=== PATIENT | male | born 1965 | race African-American/Black ===

== ENCOUNTER 2016-09-03 17:34 | Emergency (ER) | payer MEDICAID ==
[~2016-09-03] VITALS: Ht 185.4 cm; Wt 90.7 kg
[2016-09-03] MEDS ORDERED: TRAMADOL HCL50 MG ORAL (18:25)
[2016-09-03] MEDS ORDERED: IBUPROFEN600 MG ORAL (18:25)
[2016-09-03 18:36] VITALS: BP 138/82
--- NOTE | 2016-09-03 22:22 | Emergency Room Report ---
History of Present Illness General Chief Complaint: Lower Extremity Injury Source: Patient Present Illness HPI The patient is a 51-year-old male presenting for right knee pain which occurred 3 days prior. Patient states that he was walking down stairs and missed a step. He denies falling. Pain is described as an 8/10 dull ache and does not radiate. Worse with walking. Denies previous injury to the area. He denies any other symptoms Allergies: Coded Allergies: No Known Allergies (Unverified , 09/03/16) Patient History Past Medical History: see triage record Pertinent Family History: none Reviewed Nursing Documentation: PMH: Agreed, PSxH: Agreed Nursing Documentation-PMH Past Medical History: No Stated History Review of Systems All Other Systems: negative except mentioned in HPI Physical Exam Vital Signs Date Time Temp Pulse Resp B/P Pulse Ox O2 Delivery O2 Flow Rate FiO2 09/03/16 17:39 98.4 69 14 138/82 96 Room Air Sp02 EP Interpretation: reviewed, normal General Appearance: no apparent distress, alert, GCS 15, non-toxic Head: normocephalic, atraumatic Eyes: bilateral eye PERRL, bilateral eye normal inspection ENT: hearing grossly normal, normal pharynx, no angioedema, normal voice Neck: full range of motion, supple/symm/no masses Musculoskeletal: normal range of motion, swelling - medial R knee, tender - medial R knee Neurologic: alert, oriented x3, responsive, motor strength/tone normal, sensory intact, speech normal Psychiatric: judgement/insight normal, memory normal, mood/affect normal, no suicidal/homicidal ideation Skin: normal color, no rash, warm/dry, well hydrated Lymphatic: no adenopathy Procedures Splinting Splinting : Consent: Verbal Location: R knee Pre-Made Type: EDWIN wrap Pre-Proc Neuro Vasc Exam: normal Post-Proc Neuro Vasc Exam: normal Patient Tolerated: Well Complications: None Medical Decision Making PA Attestation Dr. Kenny is my supervising physician. Patient management was discussed with my supervising physician Diagnostic Impression: Primary Impression: Knee MCL sprain Qualified Codes: S83.411A - Sprain of medial collateral ligament of right knee , initial encounter ER Course The patient is a 51-year-old male presenting for right knee pain Ddx considered include but not limited to sprain/strain, fracture, contusion, ligament injury, among others Physical exam: no apparent distress. Right knee: There is tenderness to palpation as well as soft tissue swelling of the medial aspect. No joint laxity. Full active range of motion. X-rays unremarkable. Edwin wrap and crutches are applied. He is given pain medications. Rice instructions given ER precautions given Other X-Ray Diagnostic Results Other X-Ray Diagnostic Results : X-Ray ordered: R knee # of Views/Limited Vs Complete: 3 View Indication: Pain EP Interpretation: Yes Interpretation: no dislocation, no soft tissue swelling, no fractures Impression: No acute disease Interpreting ER Provider: Dr. Zoya CUADRA Scribe Text I am acting as scribe for my supervising physician. My supervising physician's interpretation of the R knee xrays are there are no fractures, dislocations or soft tissue swelling. Last Vital Signs Date Time Temp Pulse Resp B/P Pulse Ox O2 Delivery O2 Flow Rate FiO2 09/03/16 18:36 98.4 14 138/82 96 Room Air 09/03/16 17:39 69 Status: improved Disposition: HOME, SELF-CARE Condition: Improved Scripts Tramadol Hcl* (ULTRAM*) 50 Mg Tablet 50 MG ORAL Q6H Y for For Pain, #10 TAB 0 Refills Prov: YAKOV THOMAS P.A. 09/03/16 Ibuprofen* (MOTRIN*) 600 Mg Tablet 600 MG ORAL Q8H Y for For Pain, #30 TAB 0 Refills Prov: YAKOV THOMAS P.A. 09/03/16 Referrals: [facility]ERR[facility] (PCP) Patient Instructions: Knee Pain, Knee Sprain Additional Instructions: I discussed my findings with the patient. All questions and concerns have been answered. Treatment and medication compliance have been addressed. I advised the patient that they need to follow up with PMD in 3-5 days. Return to ED if pain remains or worsens, numbness or tingling occurs, new rash is noticed, fever is noticed, or if needed for any reason. Patient verbalized understanding of discharge instructions. You may need MRI of the knee if pain persists or worsens. YAKOV THOMAS Sep 03, 2016 22:22
--- NOTE | 2016-09-04 09:23 | Diagnostic Imaging Report ---
Indication: Pain 3 views of the right knee were obtained. Findings: No acute fracture, malalignment, or joint effusion are identified. Joint space is relatively well-maintained. Bone mineralization is within normal limits for age. Impression: Negative exam
== END 2016-09-03 18:38 | disposition home or self-care (01) ==
LOC: EMR 18:20
DX: S83.411A Sprain of medial collateral ligament of right knee, initial encounter (principal); W18.43XA Slipping, tripping and stumbling without falling due to stepping from one level to another, initial encounter; Y92.9 Unspecified place or not applicable
CPT/HCPCS: 29530; 99284

== ENCOUNTER 2017-03-14 18:27 | Emergency (ER) | payer MEDICAID ==
[~2017-03-14] VITALS: Ht 172.7 cm; Wt 81.6 kg
[~2017-03-14 18:27] MED LIST: IBUPROFEN600 MG ORAL; TRAMADOL HCL50 MG ORAL
[2017-03-14 19:45] VITALS: BP 139/77
[2017-03-14] MEDS ORDERED: PERCOCET 5-3251 EACH ORAL (21:24)
[2017-03-14] MEDS ORDERED: INDOMETHACIN50 MG PO (21:24)
[2017-03-14 21:33] VITALS: BP 152/79
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
== END 2017-03-14 21:34 | disposition home or self-care (01) ==
LOC: EMR 19:25
DX: M25.552 Pain in left hip (principal); M25.551 Pain in right hip
CPT/HCPCS: 73502; 99284

== ENCOUNTER 2017-08-31 21:10 | Emergency (ER) | payer MEDICAID ==
[~2017-08-31] VITALS: Ht 185.4 cm; Wt 95.3 kg
[~2017-08-31 21:10] MED LIST changes: +INDOMETHACIN50 MG PO; +PERCOCET 5-3251 EACH ORAL
--- NOTE | 2017-08-31 21:42 | Emergency Room Report ---
History of Present Illness General Chief Complaint: Back Pain-No Injury Source: Patient Present Illness HPI Is a 52-year-old male with a history kidney stone the past. He presents with left flank pain that started few hours ago. No radiation. No dysuria or frequency. No hematuria. Pain is 9 out of 10. Worse with movement. No trauma. No fever or chills. Nothing made it better. Nothing made it worse. Allergies: Coded Allergies: No Known Allergies (Unverified , 09/03/16) Patient History Past Medical History: see triage record, old chart reviewed Past Surgical History: none Pertinent Family History: none Social History: Reports: smoking Immunizations: other Reviewed Nursing Documentation: PMH: Agreed; PSxH: Agreed Review of Systems Eye: Denies: eye pain, blurred vision ENT: Denies: ear pain, nose congestion, throat swelling Respiratory: Denies: cough, shortness of breath Cardiovascular: Denies: chest pain, palpitations Gastrointestinal: Denies: abdominal pain, diarrhea, nausea, vomiting Musculoskeletal: Reports: back pain; Denies: joint pain Skin: Denies: rash Neurological: Denies: headache, numbness Endocrine: Denies: increased thirst, increased urine Hematologic/Lymphatic: Denies: easy bruising All Other Systems: negative except mentioned in HPI Physical Exam Vital Signs Date Time Temp Pulse Resp B/P (MAP) Pulse Ox O2 Delivery O2 Flow Rate FiO2 08/31/17 21:15 98.1 62 18 125/78 98 Room Air 98.1 vitals normal Sp02 EP Interpretation: reviewed, normal General Appearance: well appearing, no apparent distress, alert Head: normocephalic, atraumatic Eyes: bilateral eye PERRL, bilateral eye EOMI ENT: hearing grossly normal, normal pharynx Neck: full range of motion, supple, no meningismus Respiratory: chest non-tender, lungs clear, normal breath sounds Cardiovascular #1: regular rate, rhythm, no murmur Gastrointestinal: normal bowel sounds, non tender, no mass, no organomegaly, no bruit, non-distended Musculoskeletal: back normal, gait/station normal, normal range of motion Psychiatric: mood/affect normal Skin: warm/dry Medical Decision Making Diagnostic Impression: Primary Impression: Back pain Qualified Codes: M54.5 - Low back pain Additional Impression: UTI (urinary tract infection) Qualified Codes: N30.00 - Acute cystitis without hematuria ER Course Patient presents with back pain. No evidence of renal colic or ureteral calculus. He does have few amount of bacteria and WBC in his urine. We'll go ahead and treat for UTI. Pain is better now. No evidence obstruction or acute abdomen. No evidence of dissection. CT/MRI/US Diagnostic Results CT/MRI/US Diagnostic Results : Imaging Test Ordered: CT abdomen and pelvis Impression Read by radiologist. No acute disease. Last Vital Signs Date Time Temp Pulse Resp B/P (MAP) Pulse Ox O2 Delivery O2 Flow Rate FiO2 08/31/17 21:15 98.1 62 18 125/78 98 Room Air 98.1 Status: improved Disposition: HOME, SELF-CARE Condition: Stable Scripts Cephalexin* (KEFLEX*) 500 Mg Capsule 500 MG ORAL TID, #21 CAP Prov: SCOUT ERWIN M.D. 08/31/17 Hydrocodone/Acetaminophen 5-325* (HYDROCODONE/ACETAMINOPHEN 5-325*) 1 Each Tablet 1 TAB ORAL Q6H PRN for For Pain, #20 TAB 0 Refills Prov: SCOUT ERWIN M.D. 08/31/17 Patient Instructions: Back Pain, Adult Additional Instructions: Follow-up with your Dr. in 3-5 days. Return if symptom worsen. SCOUT ERWIN M.D. Aug 31, 2017 21:42
[2017-08-31] MEDS ORDERED: Morphine Sulfate 10mg/ml Inj IV ONE (21:45)
[2017-08-31 21:52] LABS: APPEARANCE,URINE CLEAR; BILIRUBIN, URINE NEGATIVE (NEGATIVE); COLOR,URINE AMBER; GLUCOSE, URINE (UA) NEGATIVE (NEGATIVE); KETONES,URINE NEGATIVE (NEGATIVE); LEUKOCYTE ESTERASE ,URINE 1+ (NEGATIVE); NITRITE,URINE NEGATIVE (NEGATIVE); PH,URINE 5 (4.5-8.0); PROTEIN,URINE 1+ (NEGATIVE); UROBILINOGEN,URINE 1 MG/DL (0.0-1.0)
[2017-08-31 22:00] VITALS: BP 122/74
--- NOTE | 2017-08-31 22:45 | Diagnostic Imaging Report ---
EXAM: CT Abdomen and Pelvis Without Intravenous Contrast CLINICAL HISTORY: ABD PAIN TECHNIQUE: Axial computed tomography images of the abdomen and pelvis without intravenous contrast. CTDI is 16.82 mGy and DLP is 92.1 mGy-cm. One or more of the following dose reduction techniques were used: automated exposure control, adjustment of the mA and/or kV according to patient size, use of iterative reconstruction technique. COMPARISON: No relevant prior studies available. FINDINGS: Lung bases: Unremarkable. No mass. No consolidation. ABDOMEN: Liver: Unremarkable. Gallbladder and bile ducts: Unremarkable. No calcified stones. No ductal dilation. Pancreas: Unremarkable. No ductal dilation. Spleen: Unremarkable. No splenomegaly. Adrenals: Unremarkable. No mass. Kidneys and ureters: Punctate nonobstructing right renal stone. Stomach and bowel: Unremarkable. No obstruction. No mucosal thickening. PELVIS: Appendix: No findings to suggest acute appendicitis. Bladder: Unremarkable. No stones. Reproductive: Unremarkable as visualized. ABDOMEN and PELVIS: Intraperitoneal space: Unremarkable. No free air. No significant fluid collection. Bones/joints: No acute fracture. No dislocation. Soft tissues: Unremarkable. Vasculature: Unremarkable. No abdominal aortic aneurysm. Lymph nodes: Unremarkable. No enlarged lymph nodes. IMPRESSION: Nonobstructing right renal stone.
[2017-08-31] MEDS ORDERED: HYDROCODON-ACE1 EA15 ORAL (22:53)
[2017-08-31] MEDS ORDERED: CEPHALEXIN500 MG ORAL (22:53)
[2017-08-31 23:00] VITALS: BP 122/74
== END 2017-08-31 23:00 | disposition home or self-care (01) ==
LOC: EMR 21:30
DX: M54.9 Dorsalgia, unspecified (principal); N39.0 Urinary tract infection, site not specified; Z87.442 Personal history of urinary calculi; F17.200 Nicotine dependence, unspecified, uncomplicated
CPT/HCPCS: 74176; 81003; 96374; 99284; J2270

== ENCOUNTER 2018-02-26 01:46 | Emergency (ER) | payer MEDICAID ==
[~2018-02-26] VITALS: Ht 185.4 cm; Wt 97.1 kg
[~2018-02-26 01:46] MED LIST changes: +CEPHALEXIN500 MG ORAL; +HYDROCODON-ACE1 EA15 ORAL
[2018-02-26 02:00] VITALS: BP 136/80
[2018-02-26] MEDS ORDERED: NORCO 10-325 T1 EACH ORAL (02:00)
[2018-02-26] MEDS ORDERED: INDOCIN25 MG/5 ML PO (02:00)
--- NOTE | 2018-02-26 02:00 | NUR ---
ED Nurse Note: pt walked in due to left hip pain. pt stated he was stretching his back and suddendly heard a pop on left hip. no physical deformities noted. skin is intack. pt is still able to ambulate, with pain. pulse and sensation noted. pt is still able to have full range of motion in his legs.
[2018-02-26] MEDS ORDERED: PREDNISONE20 MG ORAL (02:30)
[2018-02-26] MEDS ORDERED: HYDROCODON-ACE1 EA15 ORAL (02:30)
[2018-02-26] MEDS ORDERED: Albuterol/Ipratropium 3ml neb HHN ONE (02:30)
[2018-02-26] MEDS ORDERED: HYDROcodone/Acetamin 10/325 tab ORAL ONE (02:30)
--- NOTE | 2018-02-26 02:30 | Emergency Room Report ---
History of Present Illness General Chief Complaint: Lower Extremity Injury Source: Patient, Medical Record Present Illness HPI This is a 52-year-old male with a history of asthma and also degenerative pain to the spine. Patient presents with 2 symptoms. First one is back pain and hip pain. No trauma. He is out of his pain medication last 3 days. He scheduled to see his doctor 2 PM today. No incontinence of bowel or urine. No fever chills but no nausea no vomiting. No numbness. Pain is 8 out of 10. Worse with movement. Second complaint is shortness of breath. Onset for last 2 days. Coughing is nonproductive in nature. Worse with lying flat. Worse with exertion. Better with his inhaler. He still smoking. Allergies: Coded Allergies: No Known Allergies (Unverified , 09/03/16) Patient History Past Medical History: see triage record, old chart reviewed Past Surgical History: other Pertinent Family History: none Social History: Denies: smoking Immunizations: other Reviewed Nursing Documentation: PMH: Agreed; PSxH: Agreed Review of Systems Eye: Denies: eye pain, blurred vision ENT: Denies: ear pain, nose congestion, throat swelling Respiratory: Reports: cough, shortness of breath Cardiovascular: Denies: chest pain, palpitations Gastrointestinal: Denies: abdominal pain, diarrhea, nausea, vomiting Musculoskeletal: Reports: back pain; Denies: joint pain Skin: Denies: rash Neurological: Denies: headache, numbness Endocrine: Denies: increased thirst, increased urine Hematologic/Lymphatic: Denies: easy bruising All Other Systems: negative except mentioned in HPI Physical Exam Vital Signs Date Time Temp Pulse Resp B/P (MAP) Pulse Ox O2 Delivery O2 Flow Rate FiO2 02/26/18 01:53 97.9 64 16 136/80 95 Room Air vitals normal Sp02 EP Interpretation: reviewed, normal General Appearance: well appearing, no apparent distress, alert Head: normocephalic, atraumatic Eyes: bilateral eye PERRL, bilateral eye EOMI ENT: hearing grossly normal, normal pharynx Neck: full range of motion, supple, no meningismus Respiratory: chest non-tender, wheezing Cardiovascular #1: regular rate, rhythm, no murmur Gastrointestinal: normal bowel sounds, non tender, no mass, no organomegaly, no bruit, non-distended Musculoskeletal: back normal, gait/station normal, normal range of motion Psychiatric: mood/affect normal Skin: warm/dry Medical Decision Making Diagnostic Impression: Primary Impression: Low back pain Qualified Codes: M54.5 - Low back pain Additional Impression: Asthma exacerbation, mild ER Course Patient presents with back pain. No evidence of cauda equina syndrome, spinal epidural abscess or neoplastic process. We'll discharge home. Also with wheezing that resolved with treatment. We'll discharge home with steroid. No evidence of pneumonia. Chest X-Ray Diagnostic Results Chest X-Ray Diagnostic Results : Chest X-Ray Ordered: Yes # of Views/Limited/Complete: 1 View Indication: Shortness of Breath EP Interpretation: Yes Interpretation: no consolidation, no effusion, no pneumothorax, no acute cardiopulmonary disease Impression: No acute disease Electronically Signed by: Sadiq Baird mD Last Vital Signs Date Time Temp Pulse Resp B/P (MAP) Pulse Ox O2 Delivery O2 Flow Rate FiO2 02/26/18 01:53 97.9 64 16 136/80 95 Room Air Status: improved Disposition: HOME, SELF-CARE Condition: Stable Scripts Prednisone* (PREDNISONE*) 20 Mg Tablet 40 MG ORAL DAILY, #8 TAB Prov: Sadiq Baird MD 02/26/18 Hydrocodone/Acetaminophen 5-325* (HYDROCODONE/ACETAMINOPHEN 5-325*) 1 Each Tablet 1 TAB ORAL Q6H PRN for For Pain, #10 TAB 0 Refills Prov: Sadiq Baird MD 02/26/18 Referrals: [facility] (PCP) Additional Instructions: Follow-up with your doctor today. Return for increasing pain, fever, chills, or any concern. Sadiq Baird MD Feb 26, 2018 02:30
[2018-02-26 02:53] VITALS: BP 130/84
--- NOTE | 2018-02-26 02:54 | NUR ---
ED Nurse Note: Pt is DC per MD orders, all pt status, condition, and vital signs are reported to MD prior to DC. pt ID band removed. pt is alert and oriented times 4. no skin issues noted in ER. pt is instructed to follow up with primary MD prior to DC. pt has left with all belongings. pt left with DC notes. pt was able to teach back DC notes. pt is able to ambuate with steady gait.
--- NOTE | 2018-02-26 05:11 | Diagnostic Imaging Report ---
EXAM: XR Chest, 1 View CLINICAL HISTORY: SOB TECHNIQUE: Frontal view of the chest. COMPARISON: No relevant prior studies available. FINDINGS: Lungs: Unremarkable. No consolidation. Pleural space: Unremarkable. No pneumothorax. Heart: Unremarkable. No cardiomegaly. Mediastinum: Unremarkable. Bones/joints: Unremarkable. IMPRESSION: No radiographic evidence of acute cardiopulmonary disease.
== END 2018-02-26 02:55 | disposition home or self-care (01) ==
LOC: EMR 02:01
DX: M54.5 Low back pain (principal); J45.901 Unspecified asthma with (acute) exacerbation
CPT/HCPCS: 71045; 94640; 94664; 99284; J7512; J7620

== ENCOUNTER 2019-07-03 14:24 | Emergency (ER) | payer MEDICAID ==
[~2019-07-03] VITALS: Ht 185.4 cm; Wt 90.7 kg
[~2019-07-03 14:24] MED LIST changes: +INDOCIN25 MG/5 ML PO; +NORCO 10-325 T1 EACH ORAL; +PREDNISONE20 MG ORAL
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
[2019-07-03 14:36] VITALS: BP 130/80
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
--- NOTE | 2019-07-03 14:54 | NUR ---
ED Nurse Note: pt taken to CT
--- NOTE | 2019-07-03 15:05 | NUR ---
ED Nurse Note: PT BACK FROM CT
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
[2019-07-03] MEDS ORDERED: HYDROcodone/Acetamin 5/325 tab ORAL ONE (15:30)
--- NOTE | 2019-07-03 15:56 | Diagnostic Imaging Report ---
Indications: Pain, head trauma Technique: Spiral acquisitions obtained through the brain. Angled axial and coronal 5 x 5 mm slices were reconstructed. Total dose length product 1510 mGycm. CTDI vol(s) 53 and 15 mGy. Dose reduction achieved using automated exposure control Comparison: None. Findings: No acute intracranial hemorrhage or edema. No mass effect nor midline shift. Normal size ventricles and extra axial CSF spaces. Normal ojeda-white differentiation. There is questionably a fracture of the tip of the nasal bone. The mastoids are clear. There is deviation of the medial wall of the left orbit. There is opacification of a single posterior left ethmoid air cell. Impression: Negative for acute intracranial bleed or mass effect Possible fracture of the tip of the nasal bone. Correlate with clinical findings Incidental findings as noted The CT scanner at [facility] is accredited by the [employer] and the scans are performed using protocols designed to limit radiation exposure to as low as reasonably achievable to attain images of sufficient resolution adequate for diagnostic evaluation.
--- NOTE | 2019-07-03 15:58 | Diagnostic Imaging Report ---
Indications: Pain, trauma Technique: Spiral images obtained through the facial bones. No IV contrast utilized. Multiplanar reconstructions were generated.Total dose length product 1510 mGycm. CTDIvol(s) 53 and 15 mGy. Dose reduction achieved using automated exposure control Comparison: none Findings: There is slight irregularity of the tip of the nasal bone, particularly on the right side. There is chronic appearing medial deviation of the medial wall of the left orbit. No acute fractures otherwise. There is a right maxillary sinus polyp versus mucous retention cyst. There is suggestion of multiple dental caries. The optic globes and retroseptal orbits are intact. The deep facial soft tissues are unremarkable. Impression: Very questionable fracture deformity of the tip of the nasal bone. Correlate with clinical findings No definite acute bony trauma otherwise Evidence of dental disease Right maxillary sinus polyp versus mucous retention cyst. Chronic appearing medial orbital wall deformity The CT scanner at [facility] is accredited by the [employer] and the scans are performed using protocols designed to limit radiation exposure to as low as reasonably achievable to attain images of sufficient resolution adequate for diagnostic evaluation.
[2019-07-03] MEDS ORDERED: NORCO 5-325 TA1 EAC1 ORAL (16:47)
[2019-07-03 17:00] VITALS: BP 122/83
--- NOTE | 2019-07-03 17:00 | NUR ---
ED Nurse Note: PT sitting in chair, no acute distress is noted. VSS as documented.
--- NOTE | 2019-07-03 17:10 | NUR ---
ED Nurse Note: RITA is talking to PT
--- NOTE | 2019-07-03 17:27 | Diagnostic Imaging Report ---
EXAM: CT Cervical Spine Without Intravenous Contrast CLINICAL HISTORY: TRAUMA TECHNIQUE: Axial computed tomography images of the cervical spine without intravenous contrast. CTDI is 11.1 mGy and DLP is 329.9 mGy-cm. One or more of the following dose reduction techniques were used: automated exposure control, adjustment of the mA and/or kV according to patient size, use of iterative reconstruction technique. COMPARISON: None FINDINGS: Bones: Normal alignment. No acute fracture or bony lesion. Disc spaces: No subluxation. Degenerative changes of the spine. Soft tissues: Normal. Other: Mild scarring and emphysematous changes at the lung apices. Polyps versus mucous retention cysts in the maxillary sinuses. Mild atherosclerotic changes of the vasculature IMPRESSION: No acute traumatic abnormality.
[2019-07-03 17:40] VITALS: BP 128/80
--- NOTE | 2019-07-03 17:40 | NUR ---
ER DISCHARGE NOTE: Patient is cleared to be discharged per ERMD, pt is aox4, on room air, with stable vital signs. pt was given dc and prescription instructions, pt was able to verbalize understanding, pt id band removed without complications. pt is able to ambulate with steady gait. pt took all belongings.
== END 2019-07-03 17:40 | disposition home or self-care (01) ==
LOC: EDUNIT# 14:24 → EDBD 14:24 → EMR 15:00
DX: R42 Dizziness and giddiness (principal); M47.812 Spondylosis without myelopathy or radiculopathy, cervical region; M47.814 Spondylosis without myelopathy or radiculopathy, thoracic region; R51 Headache; M54.2 Cervicalgia; Y04.2XXA Assault by strike against or bumped into by another person, initial encounter; Y92.9 Unspecified place or not applicable
CPT/HCPCS: 70450; 70486; 72125; Z7502; 99284

== ENCOUNTER 2019-10-15 15:03 | Emergency (ER) | payer MEDICAID ==
[~2019-10-15] VITALS: Ht 185.4 cm; Wt 95.3 kg
[~2019-10-15 15:03] MED LIST changes: +NORCO 5-325 TA1 EAC1 ORAL
[2019-10-15 15:33] VITALS: BP 135/86
[2019-10-15 15:54] LABS: BASOPHILS % (AUTO) 1.7 % (0.0-2.0); EOSINOPHILS % (AUTO) 5.4 % (0.0-3.0); HEMATOCRIT 45.4 % (42.0-52.0); HEMOGLOBIN 14.8 G/DL (14.2-18.0); LYMPHOCYTES % (AUTO) 41.7 % (20.0-45.0); MEAN CORPUSCULAR VOLUME 98 FL (80-99); MONOCYTES % (AUTO) 5.2 % (1.0-10.0); PLATELET COUNT 210 K/UL (150-450); RED BLOOD COUNT 4.63 M/UL (4.70-6.10); RED CELL DISTRIBUTION WIDTH 12.7 % (11.6-14.8); WHITE BLOOD COUNT 5.9 K/UL (4.8-10.8)
[2019-10-15 15:58] LABS: ANION GAP 10 mmol/L (5-15); BLOOD UREA NITROGEN 17 mg/dL (7-18); CALCIUM 9.9 MG/DL (8.5-10.1); CARBON DIOXIDE 25 MMOL/L (21-32); CHLORIDE 104 MMOL/L (98-107); CREATININE 1.1 MG/DL (0.55-1.30); SODIUM 139 MMOL/L (136-145)
[2019-10-15 16:09] LABS: ALANINE AMINOTRANSFERASE 13 U/L (12-78); ALBUMIN 3.7 G/DL (3.4-5.0); ALBUMIN/GLOBULIN RATIO 0.9 (1.0-2.7); ALKALINE PHOSPHATASE 74 U/L (46-116); ASPARTATE AMINO TRANSFERASE 13 U/L (15-37); BILIRUBIN,TOTAL 0.5 MG/DL (0.2-1.0)
--- NOTE | 2019-10-15 16:51 | Diagnostic Imaging Report ---
Procedure: XRAY Chest 1v Reason for study: Reason For Exam: SOB Comparison films: 02/26/2018. FINDINGS: A single one view chest is obtained. Vascularity is normal. The lung morris are clear bilaterally. Cardiac and mediastinal silhouette are within normal limits. CP angles are sharp. The bony thorax appear unremarkable. IMPRESSION: NO ACUTE CARDIOPULMONARY DISEASE.
[2019-10-15] MEDS: Albuterol/Ipratropium 3ml neb HHN SCH ×2 (17:08→17:10)
[2019-10-15 17:33] LABS: APPEARANCE,URINE CLEAR; BILIRUBIN, URINE NEGATIVE (NEGATIVE); COLOR,URINE PALE YELLOW; GLUCOSE, URINE (UA) NEGATIVE (NEGATIVE); KETONES,URINE NEGATIVE (NEGATIVE); LEUKOCYTE ESTERASE ,URINE NEGATIVE (NEGATIVE); NITRITE,URINE NEGATIVE (NEGATIVE); PH,URINE 7 (4.5-8.0); PROTEIN,URINE NEGATIVE (NEGATIVE); UROBILINOGEN,URINE 1 MG/DL (0.0-1.0)
--- NOTE | 2019-10-15 17:59 | Emergency Room Report ---
History of Present Illness General Chief Complaint: Dyspnea/Respdistress Source: Patient Present Illness HPI 54-year-old male with history of tobacco smoke, COPD and asthma as well as chronic back pain here complaining of 1 week of worsening shortness of breath and chest pain reporting the albuterol inhaler is not helping him. Diffuse wheezing has been noticed. Denies any fall or injury and reports that her chronic back pain remains the same. Patient does have pain management and takes Knapp for pain. Denies any new fall or injury. Denies any tingling and numbness. Denies abdominal pain, nausea vomiting diarrhea. Denies any loss of taste or smell. Denies any cough at this time. Has not taken any medication for symptom relief. Denies drug use and alcohol intake reports that he is a smoker and continues to smoke tobacco on daily basis. Allergies: Coded Allergies: No Known Allergies (Unverified , 09/03/16) COVID-19 Screening Contact w/high risk pt: No Recent Travel to affected area: No Experienced COVID-19 symptoms?: No COVID-19 Testing performed [employer] PILOT: No Patient History Past Medical History: see triage record Past Surgical History: none Pertinent Family History: none Social History: Reports: smoking Immunizations: UTD Reviewed Nursing Documentation: PMH: Agreed; PSxH: Agreed Nursing Documentation-PMH Past Medical History: No History, Except For Hx Asthma: Yes Review of Systems All Other Systems: negative except mentioned in HPI Physical Exam Vital Signs Date Time Temp Pulse Resp B/P (MAP) Pulse Ox O2 Delivery O2 Flow Rate FiO2 10/15/19 15:07 98.4 70 17 135/86 (102) 96 Room Air Sp02 EP Interpretation: reviewed, normal General Appearance: no apparent distress, alert, GCS 15, non-toxic Head: normocephalic, atraumatic Eyes: bilateral eye normal inspection, bilateral eye PERRL ENT: hearing grossly normal, normal pharynx, no angioedema, normal voice Neck: full range of motion, supple/symm/no masses Respiratory: chest non-tender, lungs clear, normal breath sounds, speaking full sentences, wheezing - Diffuse wheezing Cardiovascular #1: regular rate, rhythm, no edema Gastrointestinal: normal bowel sounds, non tender, soft, non-distended, no guarding, no rebound Rectal: deferred Genitourinary: no CVA tenderness Musculoskeletal: back normal, no calf tenderness Neurologic: alert, motor strength/tone normal, oriented x3, sensory intact, responsive, speech normal Psychiatric: judgement/insight normal, memory normal, mood/affect normal, no suicidal/homicidal ideation Skin: no rash Lymphatic: no adenopathy Medical Decision Making PA Attestation All diagnoses and treatment plans were reviewed and discussed with my supervising physician Dr. Srivastava Diagnostic Impression: Primary Impression: Asthma exacerbation Additional Impression: Chronic back pain ER Course 54-year-old male with history of tobacco smoke, COPD and asthma as well as chronic back pain here complaining of 1 week of worsening shortness of breath and chest pain reporting the albuterol inhaler is not helping him. Diffuse wheezing has been noticed. Denies any fall or injury and reports that her chronic back pain remains the same. Patient does have pain management and takes Knapp for pain. Denies any new fall or injury. Denies any tingling and numbness. Denies abdominal pain, nausea vomiting diarrhea. Denies any loss of taste or smell. Denies any cough at this time. Has not taken any medication for symptom relief. Denies drug use and alcohol intake reports that he is a smoker and continues to smoke tobacco on daily basis. Ddx considered but are not limited to: Coronavirus, asthma exacerbation, bronchitis, PNA, URI viral, bacterial bronchitis Vital signs: are WNL, pt. is afebrile H&PE are most consistent with: Asthma exacerbation, chronic back pain ORDERS: CBC, CMP, UA, chest x-ray, troponin, BNP, d-dimer, albuterol, prednisone , Robaxin, lidocaine patch, Claritin-D as patient reports that he has postnasal dripping ED INTERVENTIONS: Albuterol nebulizer treatment DISCHARGE: At this time pt. is stable for d/c to home. Will provide printed patient care instructions, and any necessary prescriptions. Care plan and follow up instructions have been discussed with the patient prior to discharge. Patient take medication as directed, follow primary care provider, avoid smoking, if worsening symptoms return to emergency room management. EKG Diagnostic Results Rate: normal Rhythm: NSR ST Segments: no acute changes Other Impression No acute ST changes Chest X-Ray Diagnostic Results Chest X-Ray Diagnostic Results : Chest X-Ray Ordered: Yes # of Views/Limited/Complete: 1 View Indication: Chest Pain EP Interpretation: Yes KHALIF Xray: Interpretation reviewed, by supervising MD, and agrees with findings. Interpretation: no consolidation, no effusion, no pneumothorax, no acute cardiopulmonary disease Impression: No acute disease Electronically Signed by: Jose F Del Rio PA-C Last Vital Signs Date Time Temp Pulse Resp B/P (MAP) Pulse Ox O2 Delivery O2 Flow Rate FiO2 10/15/19 15:33 98.4 70 17 135/86 96 Room Air Disposition: HOME, SELF-CARE Condition: Stable Scripts Loratadine/Pseudoephedrine (CLARITIN-D 12 HOUR TABLET) 1 Each Tab.er.12h 1 TAB ORAL EVERY 12 HOURS, #30 TAB Prov: Jose F Corbin 10/15/19 Prednisone* (PREDNISONE*) 20 Mg Tablet 40 MG ORAL DAILY for 5 Days, #10 TAB Prov: Jose F Corbin 10/15/19 Albuterol Sulfate (VENTOLIN HFA) 18 Gm Hfa.aer.ad 2 PUFFS INH EVERY 6 HOURS, #18 GM 0 Refills Prov: Jose F Corbin 10/15/19 Lidocaine Patch* (Lidoderm Patch*) 1 Each Adh..patch 1 PATCH TOPIC DAILY, #30 PATCH Patch(es) may remain in place for up to 12 hours in any 24-hour period. Prov: Jose F Corbin 10/15/19 Methocarbamol* (ROBAXIN-500*) 500 Mg Tablet 500 MG ORAL TID PRN for For Pain, #15 TAB 0 Refills Prov: Jose F Corbin 10/15/19 Referrals[facility] ([facility]P) Patient Instructions: Asthma, Adult, Back Pain, Adult, [id number] Additional Instructions: Take medication as directed, avoid smoking, follow with primary care provider for controlled medication. If worsening symptoms return to emergency room Jose F Corbin Oct 15, 2019 17:59
[2019-10-15] MEDS ORDERED: LIDODERM700 M1 TOPIC (18:04)
[2019-10-15] MEDS ORDERED: VENTOLIN HFA18 GM INH (18:04)
[2019-10-15] MEDS ORDERED: CLARITIN-D 121 EAC1 ORAL (18:04)
[2019-10-15] MEDS ORDERED: PREDNISONE20 MG ORAL (18:04)
[2019-10-15] MEDS ORDERED: ROBAXIN-500MG ORAL (18:04)
[2019-10-15 18:15] VITALS: BP 12/87
== END 2019-10-15 18:17 | disposition home or self-care (01) ==
LOC: EMR 15:41
DX: J45.901 Unspecified asthma with (acute) exacerbation (principal); G89.29 Other chronic pain; M54.9 Dorsalgia, unspecified; F17.200 Nicotine dependence, unspecified, uncomplicated
CPT/HCPCS: 36415; 71045; 80053; 80307; 81003; 83880; 84484; 85025; 85379; 94640; U0002; Z7502; 99284; J7620

== ENCOUNTER 2019-12-24 15:01 | Emergency (ER) | payer MEDICAID ==
[~2019-12-24] VITALS: Ht 185.4 cm; Wt 97.5 kg
[~2019-12-24 15:01] MED LIST changes: +CLARITIN-D 121 EAC1 ORAL; +LIDODERM700 M1 TOPIC; +ROBAXIN-500MG ORAL; +VENTOLIN HFA18 GM INH
[2019-12-24 15:30] VITALS: BP 122/81
[2019-12-24] MEDS ORDERED: Bacitracin Oint UD TOPIC ONE (15:45)
[2019-12-24 15:49] VITALS: BP 124/84
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
== END 2019-12-24 15:49 | disposition home or self-care (01) ==
LOC: EMR 15:25
DX: T23.241A Burn of second degree of multiple right fingers (nail), including thumb, initial encounter (principal); T31.0 Burns involving less than 10% of body surface; J45.909 Unspecified asthma, uncomplicated; X18.XXXA Contact with other hot metals, initial encounter; Y93.9 Activity, unspecified; Y92.9 Unspecified place or not applicable; Z79.899 Other long term (current) drug therapy
CPT/HCPCS: 16020; Z7502; 99282

== ENCOUNTER 2020-01-11 13:49 | Emergency (ER) | payer MEDICAID ==
[~2020-01-11] VITALS: Ht 185.4 cm; Wt 94.8 kg
--- NOTE | 2020-01-11 14:22 | NUR ---
ED Nurse Note: Pt walke din to ED c/o pain in the right shoulder, midback upper back after lifting a heavy object x4 days. Denies trauma to the area. AAOx4, verbally responsive. No SOB, ERMD at bedside.
[2020-01-11 14:25] VITALS: BP 121/66
--- NOTE | 2020-01-11 14:25 | NUR ---
ED Nurse Note: Patient had loose stool twice a day.
[2020-01-11] MEDS ORDERED: Methocarbamol 750mg tab ORAL ONE (15:00)
[2020-01-11] MEDS ORDERED: Ketorolac 30mg Inj IM ONE (15:00)
[2020-01-11] MEDS ORDERED: ACETAMINOPHEN-1 EAC1 ORAL (15:04)
[2020-01-11] MEDS ORDERED: ROBAXIN-750750 MG PO (15:04)
[2020-01-11 15:07] VITALS: BP 121/66
--- NOTE | 2020-01-11 15:07 | NUR ---
ED Nurse Note: Pt cleared by ERMD for discharge. DC instructions/prescription was given and explained to pt and verbalized understanding of teachings. All medical deviecs such as ID band removed. Pt is AAO x4, ambulatory and left with all personal belongings.
--- NOTE | 2020-01-11 17:51 | Emergency Room Report ---
History of Present Illness General Chief Complaint: Lower Back Pain or Injury Source: Patient Present Illness HPI 54-year-old male presents for evaluation. States that he has been having upper back pain for the last 2 weeks. States he lifted a heavy object which triggered his pain. History of chronic pain to this upper back area. Dull, 10 out of 10, nonradiating. Denies chest pain or shortness of breath. Denies any other injuries. No other aggravating relieving factors. 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 COVID-19 Screening: Negative COVID-19 COVID-19 Testing Source: [employer]ACLE [employer]A ARCHITECT Patient History Past Medical History: asthma Past Surgical History: none Pertinent Family History: none Social History: Denies: smoking, alcohol use, drug use Immunizations: UTD Reviewed Nursing Documentation: PMH: Agreed; PSxH: Agreed Nursing Documentation-PMH Past Medical History: No History, Except For Hx Cardiac Problems: No - spinal cord injury, herniated disc Hx Hypertension: No Hx Pacemaker: No Hx Asthma: Yes Hx COPD: No Hx Diabetes: No Hx Cancer: No Hx Dialysis: No History Of Psychiatric Problem: No Hx Neurological Problems: No Hx Cerebrovascular Accident: No Hx Seizures: No Review of Systems All Other Systems: negative except mentioned in HPI Physical Exam Vital Signs Date Time Temp Pulse Resp B/P (MAP) Pulse Ox O2 Delivery O2 Flow Rate FiO2 01/11/20 14:17 98.8 79 16 121/66 (84) 94 Room Air Sp02 EP Interpretation: reviewed, normal General Appearance: no apparent distress, alert, GCS 15, non-toxic Head: normocephalic, atraumatic Eyes: bilateral eye normal inspection, bilateral eye PERRL ENT: hearing grossly normal, normal pharynx, no angioedema, normal voice Neck: full range of motion, supple/symm/no masses Respiratory: chest non-tender, lungs clear, normal breath sounds, speaking full sentences Cardiovascular #1: regular rate, rhythm, no edema Cardiovascular #2: 2+ carotid (R), 2+ carotid (L), 2+ radial (R), 2+ radial (L), 2+ dorsalis pedis (R), 2+ dorsalis pedis (L) Gastrointestinal: normal bowel sounds, non tender, soft, non-distended, no guarding, no rebound Rectal: deferred Genitourinary: normal inspection, no CVA tenderness Musculoskeletal: back normal, normal range of motion, gait/station normal, tender - upper paraspinal pain. Neurologic: alert, motor strength/tone normal, oriented x3, sensory intact, responsive, speech normal Psychiatric: judgement/insight normal, memory normal, mood/affect normal, no suicidal/homicidal ideation Reflexes: 3+ bicep (R), 3+ bicep (L), 3+ tricep (R), 3+ tricep (L), 3+ knee (R), 3+ knee (L) Skin: no rash Lymphatic: no adenopathy Medical Decision Making Diagnostic Impression: Primary Impression: Upper back pain ER Course Hospital Course 54-year-old male presents ED complaining of upper back pain. No evidence of trauma Differential diagnoses include: pyelonephritis, kidney stone, muscle strain, Lspine fracture Clinical course Patient placed on stretcher. After initial history physical exam reveals middle-age male in no acute distress. There is paraspinal tenderness in the upper back. No crepitus or bruising. Lungs clear. Patient given Toradol, Robaxin in ED. On reassessment pain improved. Safe for discharge for close outpatient follow-up. I will provide referrals diagnosis - upper back pain Stable and discharged to home with Tylenol 3, Robaxin. Follow-up with PMD. Return to ED if symptoms recur or worsen Last Vital Signs Date Time Temp Pulse Resp B/P (MAP) Pulse Ox O2 Delivery O2 Flow Rate FiO2 01/11/20 15:07 98.8 79 16 121/66 94 Room Air Status: improved Disposition: HOME, SELF-CARE Condition: Stable Scripts Methocarbamol* (ROBAXIN-750*) 750 Mg Tablet 750 MG PO TID, #21 TAB 0 Refills Prov: Yousuf Jones MD 01/11/20 Acetaminophen With Codeine (T#3) (TYLENOL #3 TAB*) Y Tab 1 TAB ORAL Q8H PRN for For Pain, #15 TAB Prov: Yousuf Jones MD 01/11/20 Referrals: [facility]P) [facility] Open 24 hour /7 days a week by Appointment Only [address] [facility] [address] Patient Instructions: Back Pain, Adult Yousuf Jones MD Jan 11, 2020 17:51
== END 2020-01-11 15:07 | disposition home or self-care (01) ==
LOC: EMR 14:45
DX: M54.6 Pain in thoracic spine (principal); J45.909 Unspecified asthma, uncomplicated
CPT/HCPCS: J1885; Z7502; 99282